=== PATIENT | male | born 1995 | race American Indian/Alaskan Native ===

== ENCOUNTER 2021-01-06 11:33 | Outpatient (CLI) | payer OTHER ==
--- NOTE | 2021-01-06 16:57 | XRay Report ---
PARANASAL SINUSES 3 VIEWS INDICATION / CLINICAL INFORMATION: SINUS PAIN. COMPARISON: None available. FINDINGS: The paranasal sinuses and mastoid air cells are clear. No osseous abnormality is seen. IMPRESSION: No evidence of acute sinusitis. Signer Name: Carlton Lord MD Signed: 01/06/2021 4:50 PM Workstation Name: [id number]
== END 2021-01-06 11:34 | disposition home or self-care (01) ==
LOC: XRAY 11:33
PROVIDERS: ATTEND Internal Medicine
DX: J32.9 Chronic sinusitis, unspecified (principal)
CPT/HCPCS: 70220